=== PATIENT | female | born 2000 | race Caucasian/White ===

== ENCOUNTER 2024-01-21 15:41 | Emergency (ER) | payer SELFPAY ==
--- OUTSIDE RECORDS SUMMARY | 2024-01-21 15:44 | XMS REPORT | Continuity of Care Document ---
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 Name Role Phone Unavailable Unavailable Unavailable Problems Condition Name Condition Details Condition Category Status Onset Date Resolution Date Last Treatment Date Treating Clinician Comments Source Skin lesion Skin Lesion Problem Active 11-06 00:00: 00 [facility] Pelvic swelling Pelvic Swelling Problem Active 11-06 00:00: 00 [facility] Excessive menstruati on with irregular cycle Excessive Menstruati on with Irregular Cycle Problem Active 11-06 00:00: 00 [facility] Anxiety Anxiety Problem Active 11-04 00:00: 00 [facility] Depressive disorder Depressive Disorder Problem Active 11-04 00:00: 00 [facility] Psoriasis Psoriasis Problem Active 11-04 00:00: 00 [facility] Social History Smoking Status Start Date Stop Date Source Current Every Day Smoker [facility] Medications Ordered Medication Name Filled Medication Name Start Date Stop Date Current Medication? Ordering Clinician Indication Dosage Frequency Signature (SIG) Comments Components Source albuterol 90 mcg-budeson fina 80 mcg/actuati on HFA aerosol inhaler Inhale by inhalation route. albuterol 90 mcg-budeson fina 80 mcg/actuati on HFA aerosol inhaler Inhale by inhalation route. No albuterol 90 mcg-budeso nide 80 mcg/actuat ion HFA aerosol inhaler Inhale by inhalation route. [facility] Vital Signs Vital Name Observation Time Observation Value Comments S ritesh BMI (Body Mass Index) 2023-11-05 00:00:00 30.7 kg/m2 [facility] Height 2023-11-05 00:00:00 72 [in_i] [facility] BP Systolic 2023-11-05 00:00:00 105 mm[Hg] [facility] BP Diastolic 2023-11-05 00:00:00 72 mm[Hg] [facility] Body Weight 2023-11-05 00:00:00 226 [lb_av] [facility] Procedures Procedure Date / Time Performed Performing Clinicia n Source CT, abdomen + pelvis, w/wo contrast 2023-11-08 00:00:00 [facility] US, transvaginal 2023-11-07 00:00:00 [facility] ia Medical Encounters Start Date/Time End Date/Time Encounter Type Admission Type Attending [facility] Care Department Encounter ID Source 2023-11-18 00:00:00 2023-11-18 00:00:00 HUONG Franks: [address], [address], [place] [id number] , Ph. [facility] GC_GCBZW_[facility]* [id number] [facility] 2023-11-13 00:00:00 2023-11-13 00:00:00 JOSE Gil: [address], [place] [phone] , Ph. [facility]_GCBZW_[facility]* [id number] [facility] 2023-11-07 00:00:00 2023-11-07 00:00:00 Sania Donis PA: [address], [place] [phone] , Ph. [facility]_GCBZW_[facility]* [id number] [facility] 2023-11-05 00:00:00 2023-11-05 00:00:00 JOSE Gil: [address], [place] [phone] , Ph. [facility]_GCBZW_[facility] [place]* [id number] [facility] Results Test Description Test Time Test Comments Results Result Co mments Source [facility] WddawjpWekma-1-kkfmwzdnvre.tumor marker [Mass/volume] in Serum or Plasma 2023-11-15 00:00:00* Test Item Value Reference Range Interpretation Comme nts AFP, tumor marker (test code = AFP, tumor marker) 2.3 NG/mL <8.4 [facility] MedicalInhibin A [Mass/volume] in Serum or [id number] 00:00:00* Test Item Value Reference Range Interpretation Comme nts inhibin-A (test code = inhibin-A) 40.6 pg/mL see below [facility] MxykoolQnbnd-4-lvddbgpowxf.tumor marker [Mass/volume] in Serum or Plasma 2023-11-15 00:00:00* Test Item Value Reference Range Interpretation Comme nts AFP, tumor marker (test code = AFP, tumor marker) 2.3 NG/mL <8.4 [facility] MedicalInhibin A [Mass/volume] in Serum or [id number] 00:00:00* Test Item Value Reference Range Interpretation Comme nts inhibin-A (test code = inhibin-A) 40.6 pg/mL see below [facility]cer Ag 19-9 [Units/volume] in Serum or [id number] 00:00:00* Test Item Value Reference Range Interpretation Comme nts Ca 19-9 (test code = Ca 19-9) 6.6 U/mL See_Comment [Automated [employer] ge] The system which generated this result transmitted reference range: <or=35.0. The reference range was not used to interpret this result as normal/abnormal. [facility] MedicalLactate dehydrogenase [Enzymatic activity/volume] in Serum or [id number] 00:00:00* Test Item Value Reference Range Interpretation Comme nts LD (test code = LD) 169 U/L 135-214 [facility] MedicalLactate dehydrogenase [Enzymatic activity/volume] in Serum or [id number] 00:00:00* Test Item Value Reference Range Interpretation Comme nts LD (test code = LD) 169 U/L 135-214 [facility]Lactate dehydrogenase [Enzymatic activity/volume] in Serum or [id number] 00:00:00* Test Item Value Reference Range Interpretation Comme nts LD (test code = LD) 169 U/L 135-214 [facility] MedicalLactate dehydrogenase [Enzymatic activity/volume] in Serum or [id number] 00:00:00* Test Item Value Reference Range Interpretation Comme nts LD (test code = LD) 169 U/L 135-214 [facility] Ag 125 [Units/volume] in Serum or [id number] 00:00:00 * Test Item Value Reference Range Interpretation Comme nts CA-125 (test code = CA-125) 23.2 U/mL 6.4-38.1 [facility] metabolic 2000 panel - Serum or [id number] 00:00:00* Test Item Value Reference Range Interpretation Comme nts sodium (test code = sodium) 141 mmol/L 136-145 potassium (test code = potassium) 4.0 mmol/L 3.5-5.5 chloride (test code = chloride) 103 mmol/L 98-107 CO2 (test code = CO2) 26 mmol/ L 23-31 glucose (test code = glucose) 102 mg/dL 70-99 H BUN (test code = BUN) 9 mg/dL 6-20 creatinine (test code = creatinine) 0.8 mg/dL 0.5-0.9 BUN/creatinine ratio (test code = BUN/creatinine ratio) 11.3 calc 10.0-28.0 eGFR non- (test code = eGFR non-) 108.708 mL/min/1.73A? >60.000 eGFR (test code = eGFR ) 130.450 mL/min/1.73A? >60.000 [facility] MedicalChoriogonadotropin.beta subunit [Units/volume] in Serum or Plasma 2023-11-14 00:00:00* Test Item Value Reference Range Interpretation Comme nts HCG (test code = HCG) < 5 [facility] 125 [Units/volume] in Serum or [id number] 00:00:00 * Test Item Value Reference Range Interpretation Comme nts CA-125 (test code = CA-125) 23.2 U/mL 6.4-38.1 [facility] metabolic 2000 panel - Serum or [id number] 00:00:00* Test Item Value Reference Range Interpretation Comme nts sodium (test code = sodium) 141 mmol/L 136-145 potassium (test code = potassium) 4.0 mmol/L 3.5-5.5 chloride (test code = chloride) 103 mmol/L 98-107 CO2 (test code = CO2) 26 mmol/ L 23-31 glucose (test code = glucose) 102 mg/dL 70-99 H BUN (test code = BUN) 9 mg/dL 6-20 creatinine (test code = creatinine) 0.8 mg/dL 0.5-0.9 BUN/creatinine ratio (test code = BUN/creatinine ratio) 11.3 calc 10.0-28.0 eGFR non- (test code = eGFR non-) 108.708 mL/min/1.73A? >60.000 eGFR (test code = eGFR ) 130.450 mL/min/1.73A? >60.000 [facility] MedicalChoriogonadotropin.beta subunit [Units/volume] in Serum or Plasma 2023-11-14 00:00:00* Test Item Value Reference Range Interpretation Comme nts HCG (test code = HCG) < 5 [facility] MedicalCancer Ag 125 [Units/volume] in Serum or [id number] 00:00:00 * Test Item Value Reference Range Interpretation Comme nts CA-125 (test code = CA-125) 23.2 U/mL 6.4-38.1 [facility] - [facility] or [id number] 00:00:00* Test Item Value Reference Range Interpretation Comme nts sodium (test code = sodium) 141 mmol/L 136-145 potassium (test code = potassium) 4.0 mmol/L 3.5-5.5 chloride (test code = chloride) 103 mmol/L 98-107 CO2 (test code = CO2) 26 mmol/ L 23-31 glucose (test code = glucose) 102 mg/dL 70-99 H BUN (test code = BUN) 9 mg/dL 6-20 creatinine (test code = creatinine) 0.8 mg/dL 0.5-0.9 BUN/creatinine ratio (test code = BUN/creatinine ratio) 11.3 calc 10.0-28.0 eGFR non- (test code = eGFR non-) 108.708 mL/min/1.73A? >60.000 eGFR (test code = eGFR ) 130.450 mL/min/1.73A? >60.000 [facility] MedicalChoriogonadotropin.beta subunit [Units/volume] in Serum or Plasma 2023-11-14 00:00:00* Test Item Value Reference Range Interpretation Comme nts HCG (test code = HCG) < 5 [facility] MedicalThyrotropin [Units/volume] in Serum or [id number] 00:00:00* Test Item Value Reference Range Interpretation Comme nts TSH (test code = TSH) 2.470 uIU/mL 0.500-4.530 [facility] MedicalThyrotropin [Units/volume] in Serum or [id number] 00:00:00* Test Item Value Reference Range Interpretation Comme nts TSH (test code = TSH) 2.470 uIU/mL 0.500-4.530 [facility] MedicalThyrotropin [Units/volume] in Serum or [id number] 00:00:00* Test Item Value Reference Range Interpretation Comme nts TSH (test code = TSH) 2.470 uIU/mL 0.500-4.530 [facility] MedicalThyrotropin [Units/volume] in Serum or [id number] 00:00:00* Test Item Value Reference Range Interpretation Comme nts TSH (test code = TSH) 2.470 uIU/mL 0.500-4.530 [facility] panel - Blood by Automated [id number] 00:00:00* Test Item Value Reference Range Interpretation Comme nts WBC (test code = WBC) 9.4 10 3.7-12.0 RBC (test code = RBC) 4.21 10 3.60-5.50 HGB (test code = HGB) 12.7 g/dL 11.5-15.6 HCT (test code = HCT) 38.6 % 34.5-46.5 MCV (test code = MCV) 91.8 um 80.0-102.0 MCH (test code = MCH) 30.1 pg 25.0-34.1 MCHC (test code = MCHC) 32.8 g/dL 29.0-35.0 RDW (test code = RDW) 14.7 % 10.9-16.9 plt (test code = plt) 277 10 136-392 MPV (test code = MPV) 9.1 um 7.4-11.1 gran % (test code = gran %) 73.5 % 36.0-78.0 lymph % (test code = lymph %) 19.2 % 12.0-48.0 mono % (test code = mono %) 6.0 % 0.0-13.0 eos % (test code = eos %) 1 % 0-8 baso % (test code = baso %) 0 % 0-2 gran # (test code = gran #) 6.9 10 1.2-6.8 H lymph # (test code = lymph #) 1.8 10 1.2-3.2 mono # (test code = mono #) 0.6 10 0.3-0.8 eos # (test code = eos #) 0.1 10 0.0-0.4 baso # (test code = baso #) 0.0 10 0.0-0.2 [facility] MedicalChlamydia trachomatis and Neisseria gonorrhoeae rRNA panel - Specimen by [facility] with probe [id number] 00:00:00* Test Item Value Reference Range Interpretation Comme nts aptima combo 2 swab (CT) (te st code = aptima combo 2 swab (CT)) CT neg negative aptima combo 2 swab (GC) (te st code = aptima combo 2 swab (GC)) GC neg negative [facility] MedicalCBC panel - Blood by Automated [id number] 00:00:00* Test Item Value Reference Range Interpretation Comme nts WBC (test code = WBC) 9.4 10 3.7-12.0 RBC (test code = RBC) 4.21 10 3.60-5.50 HGB (test code = HGB) 12.7 g/dL 11.5-15.6 HCT (test code = HCT) 38.6 % 34.5-46.5 MCV (test code = MCV) 91.8 um 80.0-102.0 MCH (test code = MCH) 30.1 pg 25.0-34.1 MCHC (test code = MCHC) 32.8 g/dL 29.0-35.0 RDW (test code = RDW) 14.7 % 10.9-16.9 plt (test code = plt) 277 10 136-392 MPV (test code = MPV) 9.1 um 7.4-11.1 gran % (test code = gran %) 73.5 % 36.0-78.0 lymph % (test code = lymph %) 19.2 % 12.0-48.0 mono % (test code = mono %) 6.0 % 0.0-13.0 eos % (test code = eos %) 1 % 0-8 baso % (test code = baso %) 0 % 0-2 gran # (test code = gran #) 6.9 10 1.2-6.8 H lymph # (test code = lymph #) 1.8 10 1.2-3.2 mono # (test code = mono #) 0.6 10 0.3-0.8 eos # (test code = eos #) 0.1 10 0.0-0.4 baso # (test code = baso #) 0.0 10 0.0-0.2 [facility] MedicalChlamydia trachomatis and Neisseria gonorrhoeae rRNA panel - Specimen by [facility] with probe [id number] 00:00:00* Test Item Value Reference Range Interpretation Comme nts aptima combo 2 swab (CT) (te st code = aptima combo 2 swab (CT)) CT neg negative aptima combo 2 swab (GC) (te st code = aptima combo 2 swab (GC)) GC neg negative [facility] panel - Blood by Automated [id number] 00:00:00* Test Item Value Reference Range Interpretation Comme nts WBC (test code = WBC) 9.4 10 3.7-12.0 RBC (test code = RBC) 4.21 10 3.60-5.50 HGB (test code = HGB) 12.7 g/dL 11.5-15.6 HCT (test code = HCT) 38.6 % 34.5-46.5 MCV (test code = MCV) 91.8 um 80.0-102.0 MCH (test code = MCH) 30.1 pg 25.0-34.1 MCHC (test code = MCHC) 32.8 g/dL 29.0-35.0 RDW (test code = RDW) 14.7 % 10.9-16.9 plt (test code = plt) 277 10 136-392 MPV (test code = MPV) 9.1 um 7.4-11.1 gran % (test code = gran %) 73.5 % 36.0-78.0 lymph % (test code = lymph %) 19.2 % 12.0-48.0 mono % (test code = mono %) 6.0 % 0.0-13.0 eos % (test code = eos %) 1 % 0-8 baso % (test code = baso %) 0 % 0-2 gran # (test code = gran #) 6.9 10 1.2-6.8 H lymph # (test code = lymph #) 1.8 10 1.2-3.2 mono # (test code = mono #) 0.6 10 0.3-0.8 eos # (test code = eos #) 0.1 10 0.0-0.4 baso # (test code = baso #) 0.0 10 0.0-0.2 [facility]Chlamydia trachomatis and Neisseria gonorrhoeae rRNA panel - Specimen by [facility] with probe [id number] 00:00:00* Test Item Value Reference Range Interpretation Comme nts aptima combo 2 swab (CT) (te st code = aptima combo 2 swab (CT)) CT neg negative aptima combo 2 swab (GC) (te st code = aptima combo 2 swab (GC)) GC neg negative [facility] panel - Blood by Automated [id number] 00:00:00* Test Item Value Reference Range Interpretation Comme nts WBC (test code = WBC) 9.4 10 3.7-12.0 RBC (test code = RBC) 4.21 10 3.60-5.50 HGB (test code = HGB) 12.7 g/dL 11.5-15.6 HCT (test code = HCT) 38.6 % 34.5-46.5 MCV (test code = MCV) 91.8 um 80.0-102.0 MCH (test code = MCH) 30.1 pg 25.0-34.1 MCHC (test code = MCHC) 32.8 g/dL 29.0-35.0 RDW (test code = RDW) 14.7 % 10.9-16.9 plt (test code = plt) 277 10 136-392 MPV (test code = MPV) 9.1 um 7.4-11.1 gran % (test code = gran %) 73.5 % 36.0-78.0 lymph % (test code = lymph %) 19.2 % 12.0-48.0 mono % (test code = mono %) 6.0 % 0.0-13.0 eos % (test code = eos %) 1 % 0-8 baso % (test code = baso %) 0 % 0-2 gran # (test code = gran #) 6.9 10 1.2-6.8 H lymph # (test code = lymph #) 1.8 10 1.2-3.2 mono # (test code = mono #) 0.6 10 0.3-0.8 eos # (test code = eos #) 0.1 10 0.0-0.4 baso # (test code = baso #) 0.0 10 0.0-0.2 [facility] MedicalChlamydia trachomatis and Neisseria gonorrhoeae rRNA panel - Specimen by [facility] with probe [id number] 00:00:00* Test Item Value Reference Range Interpretation Comme nts aptima combo 2 swab (CT) (te st code = aptima combo 2 swab (CT)) CT neg negative aptima combo 2 swab (GC) (te st code = aptima combo 2 swab (GC)) GC neg negative [facility], [id number] 13:27:00* Test Item Value Reference Range Interpretation Comme nts HCG (test code = HCG) negative [facility]regnancy test, [id number] 13:27:00* Test Item Value Reference Range Interpretation Comme nts HCG (test code = HCG) negative [facility]regnancy [facility], [id number] 13:27:00* Test Item Value Reference Range Interpretation Comme nts HCG (test code = HCG) negative [facility]regnancy [facility], [id number] 13:27:00* Test Item Value Reference Range Interpretation Comme nts HCG (test code = HCG) negative [facility]
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
[2024-01-21 22:35] VITALS: BP 123/80; TEMP 97.2; O2SAT 98
== END 2024-01-21 19:02 | disposition left against medical advice (07) ==
LOC: ER 15:41
DX: S09.93XA Unspecified injury of face, initial encounter (principal); V43.52XA Car driver injured in collision with other type car in traffic accident, initial encounter; W22.11XA Striking against or struck by driver side automobile airbag, initial encounter; Y93.89 Activity, other specified; Y92.410 Unspecified street and highway as the place of occurrence of the external cause; Z53.21 Procedure and treatment not carried out due to patient leaving prior to being seen by health care provider; F17.290 Nicotine dependence, other tobacco product, uncomplicated
CPT/HCPCS: 99281

== ENCOUNTER 2025-02-16 02:44 | Inpatient (IN) | payer OTHER, SELFPAY ==
--- OUTSIDE RECORDS SUMMARY | 2025-02-16 02:47 | XMS REPORT | Continuity of Care Document ---
Author Name Unknown Address [address] [place] [address] [facility] Address [address] [place] [address] Care Team Providers Care Tailor Apprentice Name Role Phone Raisa Andre Attending Clinician Raisa Stuart Admitting Clinician Alec gregg Payers Payer Name Policy Type Policy Number Effective Date Expirati on Date Source Problems Condition Name Condition Details Condition Category Status Onset Date Resolution Date Last Treatment Date Treating Clinician Comments Source Scalding pain on urination Scalding Pain on Urination Problem Active 2-27 00:00: 00 [facility] Constipati on Constipati on Problem Active 1- 00:00: 00 [facility] Left lower quadrant pain Left Lower Quadrant Pain Problem Active 1- 00:00: 00 [facility] Endometrio sis of pelvis Endometrio sis of Pelvis Problem Active 2023-07 1- 00:00: 00 [facility] Postoperat seamus nausea and vomiting Postoperat seamus Nausea and Vomiting Problem Active 2023-07 0- 00:00: 00 [facility] Skin lesion Skin Lesion Problem Active 11-06 [...] Psoriasis Psoriasis Problem Active 11-04 00:00: 00 [facility] Allergies, Adverse Reactions, Alerts Allergy Name Allergy Type Status Severity Reaction(s) Onset Date Inactive Date Treating Clinician Comments Source No Known Allergie s DA Active U 2023-07 00:00: 00 [facility] Social History Smoking Status Start Date Stop Date Source Current Every Day Smoker [facility] Medications Ordered Medication Name Filled Medication Name Start Date Stop Date Current Medication? Ordering Clinician Indication Dosage Frequency Signature (SIG) Comments Components Source albuterol sulfate HFA 90 mcg/actuati on aerosol inhaler INHALE 2 PUFFS BY MOUTH EVERY 4 TO 6 HOURS NEEDED albuterol sulfate HFA 90 mcg/actuati on aerosol inhaler INHALE 2 PUFFS BY MOUTH EVERY 4 TO 6 HOURS NEEDED No albuterol sulfate HFA 90 mcg/actuat ion aerosol inhaler INHALE 2 PUFFS BY MOUTH EVERY 4 TO 6 HOURS NEEDED [facility] Luis 24 Fe 1 mg-20 mcg (24)/75 mg (4) tablet TAKE ONE (1) TABLET(S) BY MOUTH ONCE A DAY. Luis 24 Fe 1 mg-20 mcg (24)/75 mg (4) tablet TAKE ONE (1) TABLET(S) BY MOUTH ONCE A DAY. No Luis 24 Fe 1 mg-20 mcg (24)/75 mg (4) tablet TAKE ONE (1) TABLET(S) BY MOUTH ONCE A DAY. [facility] nitrofurant oin monohydrate /macrocryst als 100 mg capsule TAKE ONE (1) CAPSULE BY MOUTH EVERY 12 HOURS FOR 7 DAYS. nitrofurant oin monohydrate /macrocryst als 100 mg capsule TAKE ONE (1) CAPSULE BY MOUTH EVERY 12 HOURS FOR 7 DAYS. No 1capsul e(s) Q12H nitrofuran toin monohydrat e/macrocry stals 100 mg capsule TAKE ONE (1) CAPSULE BY MOUTH EVERY 12 HOURS FOR 7 DAYS. [facility] Vital Signs Vital Name Observation Time Observation Value Comments S ource BP Systolic 2024-09-10 00:00:00 108 mm[Hg] [facility] Height 2024-09-10 00:00:00 72 [in_i] [facility] BMI (Body Mass Index) 2024-09-10 00:00:00 24.8 kg/m2 [facility] BP Diastolic 2024-09-10 00:00:00 67 mm[Hg] [facility] Body Weight 2024-09-10 00:00:00 183 [lb_av] [facility] BMI (Body Mass Index) 2024-08-26 00:00:00 26 kg/m2 [facility] BP Diastolic 2024-08-26 00:00:00 63 mm[Hg] [facility] Height 2024-08-26 00:00:00 72 [in_i] [facility] BP Systolic 2024-08-26 00:00:00 111 mm[Hg] [facility] Body Weight 2024-08-26 00:00:00 191.4 [lb_av] [facility] BMI (Body Mass Index) 2024-07-21 00:00:00 26 kg/m2 [facility] Body Weight 2024-07-21 00:00:00 191.4 [lb_av] [facility] Height 2024-07-21 00:00:00 72 [in_i] [facility] BP Diastolic 2024-07-21 00:00:00 83 mm[Hg] [facility] BP Systolic 2024-07-21 00:00:00 130 mm[Hg] [facility] BP Systolic 2024-05-18 00:00:00 111 mm[Hg] [facility] Body Weight 2024-05-18 00:00:00 210.4 [lb_av] [facility] BMI (Body Mass Index) 2024-05-18 00:00:00 28.5 kg/m2 [facility] BP Diastolic 2024-05-18 00:00:00 63 mm[Hg] [facility] Height 2024-05-18 00:00:00 72 [in_i] [facility] BP Systolic 2024-04-30 00:00:00 114 mm[Hg] [facility] Body Weight 2024-04-30 00:00:00 210.4 [lb_av] [facility] Height 2024-04-30 00:00:00 72 [in_i] [facility] BP Diastolic 2024-04-30 00:00:00 74 mm[Hg] [facility] BMI (Body Mass Index) 2024-04-30 00:00:00 28.5 kg/m2 [facility] BMI (Body Mass Index) 2023-11-05 00:00:00 30.7 kg/m2 [facility] Height 2023-11-05 00:00:00 72 [in_i] [facility] BP Systolic 2023-11-05 00:00:00 105 mm[Hg] [facility] BP Diastolic 2023-11-05 00:00:00 72 mm[Hg] [facility] Body Weight 2023-11-05 00:00:00 226 [lb_av] [facility] Procedures Procedure Date / Time Performed Performing Clinicia n Source US TRANSVAGINAL 2024-10-29 00:00:00 [facility] Laparoscopy 2024-05-11 00:00:[address] [facility] [facility] [address], abdomen + pelvis, w/wo contrast 2023-11-08 00:00:00 [facility] US, transvaginal 2023-11-07 00:00:00 [facility] Encounters Start Date/Time End Date/Time Encounter Type Admission Type Attending Clinicians Care Facility Care Department Encounter ID Source 2024-10-29 00:00:00 2024-10-29 00:00:00 Raisa Andre MD: [address], [place] [address] , Ph. [facility]* [id number] [facility] 2024-09-10 00:00:00 2024-09-10 00:00:00 HUONG Kincaid: [address], [place] [address] , Ph. [facility] GC[facility]GCBZW_[facility]* [id number] [facility] 2024-08-26 00:00:00 2024-08-26 00:00:00 JOSE Gil: [address], [place] [address] , Ph. [facility] [id number] [facility] 2024-07-21 00:00:00 2024-07-21 00:00:00 HUONG Kincaid: [address], [place] [phone] , Ph. [facility]* [id number] [facility] 2024-05-18 00:00:00 2024-05-18 00:00:00 ALDO FranksP: [address], [place] [phone] , Ph. [facility]* [id number] [facility] 2024-05-11 07:03:00 2024-05-11 07:03:00 Outpatient Raisa Frey [facility] JM [id number] 41 [facility] 2024-04-30 00:00:00 2024-04-30 00:00:00 HUONG Franks: [address], [place] [phone] , Ph. [facility]* [id number] [facility] 2023-11-18 00:00:00 2023-11-18 00:00:00 HUONG Franks: [address], [place] [phone] , Ph. [facility]* [id number] [facility] 2023-11-13 00:00:00 2023-11-13 00:00:00 JOSE Gil: [address], [place] [address] , Ph. [facility]* [id number] [facility] 2023-11-07 00:00:00 2023-11-07 00:00:00 JOSE Gil: [address], [place] [address] , Ph. [facility]* [id number] [facility] 2023-11-05 00:00:00 2023-11-05 00:00:00 Sania Donis PA: [address], [place] [address] , Ph. [facility]* [id number] [facility] Results Test Description Test Time Test Comments Results Result Co mments Source [id number] 16:45:00* Test Item Value Reference Range Interpretation Comme nts SURGICAL (test code = SR) R UN DATE: 05/20/24 [facility] PAGE 1 RUN TIME: 1115 Specimen Inquiry RUN USER: INTERFACE P ATIENT: SAM BARRIGA LOC: EVE U #: [id number] AGE/SX: 24/F ROOM: RE05/11/24REG DR: Raisa Andre MD, DOB: [birth year] BED: DIS: STATUS: [facility] TLOC: SPEC #: [id number] RECD: 05/12/24 STATUS: BEULAH REQ #: [id number] CHRISTEN: 05/11/24 [facility] DR: Raisa Andre MD ENTERED: 05/12/24 SP TYPE: SURGICAL OTHR DR: ORDERED: [id number], [id number], [id number], ANATOMIC SPEC, SPECIMEN TRACK PROCEDURES: 41289 (05/13/24) 45715 (05/13/24) 57608 (05/13/24) SPECIMEN TRACK (05/12/24) TISSUES: A. UTERUS - RIGHT LATERAL WALL B. FALLOPIAN TUBE NOS - LEFT FALLOPIAN TUBE C. OVARY, RIGHT - RIGHT OVARY CYST ADDENDUM FINDINGS Addendum #1 Entered: 05/20/241115 These addendum is to correct the diagnosis in specimen B as the wrong clinical appeals specialist wastyped. Specimen B consistent only of peritubal soft tissue with Endometriosis. Forclarification the entire corrected diagnosis is transcribed below, "A. Soft tissue partly covered by mesothelium, right lateral wall, lesion, laparoscopicexcisional biopsy:- Consistent with endometriosis B. Soft tissue, left peritubal area, lesion, excisional biopsy:- Endometriosis C. 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 Negative formalignancy. Suggest clinical correlation." Addendum comment: This clinical appeals specialist correction was discussed with Dr. Raisa Andre on05/19/2024. CONTINUED ON NEXT PAGE R UN DATE: 05/20/24 [facility] PAGE 2 RUN TIME: 1115 Specimen Inquiry RUN USER: INTERFACE S PEC #: 24:[facility]:[id number] PATIENT: SAM BARRIGA #[id number] (Continued) ADDENDUM FINDINGS (Continued) Addendum Signed SIGNATURE ON FILE Elizabeth Díaz 05/20/24 1115 FINAL DIAGNOSIS A. Soft tissue partly covered by mesothelium, right lateral wall, lesion, laparoscopicexcisional biopsy:- Consistent with endometriosis. B. Fallopian tube, left, salpingectomy:- Wall, lumen and fimbriated end identified; no morphologic alteration C. Ovary, right, large cyst, oophorectomy:- Mixed serous-mucinous cistoadenoma- Small corpus luteum identified Comment: Please also refer to related cytology report number 24:[facility]:[id number]. Suggest clinicalcorrelation. Negative for malignancy. GROSS DESCRIPTION A. Right lateral wall. It consists of a fibrous plunkett cauterized tissue fragment 2.5 x 0.6x 0.4 cm. It is sectioned and submitted entirely as A1. B. Left fallopian tube. Received is a 2 yellow-plunkett tissue fragments measuring 0.5 x 0.3 x0.2 and 0.6 x 0.6 x 0.4 cm. It is sectioned they are submitted as B1. C. Right ovary and cyst. Received is a flaps ovarian cyst that weighs 548 g. It ibubfvda27 x 16 cm. The wall has a thickness ranging 0.4 - 2.8 cm. Upon sectioning there aremultiple cortical cysts present. These cysts measure up to 5 cm in greatest dimension. They are filled with a serous sanguinous fluid. The cystic lining is smooth. No papillaryfeatures are identified. Multiple sections as C1-C16. Technical tissue processing and slide preparation performed at [facility] [facility],[id number] , [place] [address] Unless gross only, the diagnosis is based upon microscopic examination.Immunohistochemistr y: This test was developed and its performance characteristicsdetermined by this laboratory. It has not been approved nor does it need approval by the USFDA. Appropriate positive and negative controls are reviewed and judged to be acceptable.This laboratory is certified under the Clinical Laboratory Improvement Amendments (CLIA-88)as qualified to perform high complexity clinical laboratory testing. CONTINUED ON NEXT PAGE R UN DATE: 05/20/24 [facility] PAGE 3 RUN TIME: 1115 Specimen Inquiry RUN USER: INTERFACE S JENIFFER #: 24:[facility]:[id number] PATIENT: SAM BARRIGA #[id number] (Continued) MICROSCOPIC DESCRIPTION Microscopic examination is performed on all specimens and the findings areincorporated into the final diagnosis. Please see diagnosis for findings. CLINICAL INFORMATION Right lateral wall, left tube endometriosis and large right ovarian cyst. ---- Signed SIGNATURE ON FILE Elizabeth Díaz 05/13/24 1645 END OF REPORT CYTOLOGY NON [id number] 16:43:00* Test Item Value Reference Range Interpretation Comme nts CYTOLOGY NON DOUBLE END TRIMMER (test code = CR) RUN DATE: 05/13/24 [facility] PAGE 1 RUN TIME: 1643 Specimen Inquiry RUN USER: INTERFACE PATIENT: SAM BARRIGA LOC: G U #: [id number] AGE/SX: 24/F ROOM: RE05/11/24REG DR: Raisa Andre MD : [birth year] BED: DIS: STATUS: [facility] TLOC: SPEC #: [id number] RECD: 05/11/24 STATUS: BEULAH REQ #: [id number] CHRISTEN: 05/11/[address]: Raisa Andre MD ENTERED: 05/11/24 SP TYPE: CYTO NGYN MIRIAN DR: ORDERED: 50767/2, 99302/2, ANATOMIC SPEC, SPECIMEN TRACK PROCEDURES: 92499 (05/11/24-1509) 95115 (05/11/24) SPECIMEN TRACK (05/11/24) TISSUES: A. PERITONEAL WASHING (THIN PREP, CELL BLOCK) - ABNOMINAL PERITONEAL WASHING B. CYST--OVARIAN, NONNEOPLASTIC (SIMPLE) - OVARIAN CYST FLUID FINAL DIAGNOSIS A. Peritoneal fluid, paracentesis, cytology and cell block:- Benign- Mesothelial cells, moderate; some reactive- Proteinaceous, mildly bloody background B. Right ovarian cyst fluid, cytology and cell block:- Cyst contents (mucous debris, scattered macrophages and rare, poorly preserved epithelialcells) Comment: Please also refer to related surgical report number 24:[facility]:[id number]. Negative foratypia/malignancy. Suggest clinical and image correlation. GROSS DESCRIPTION A. Peritoneal washing. It consists of 20 cc of a colorless cloudy fluid. It is submittedfor cytologic preparation. Thin prep: 1 Cell block: 1 B. Ovarian cyst fluid. No laterality provided. It consists of 25 cc of light brownpartially cloudy fluid. It is submitted for cytologic preparation. Thin prep: 1 Cell block: 1 Technical tissue processing and slide preparation performed at [employer] [facility],[id number] , [place] [address] CONTINUED ON NEXT PAGE RUN DATE: 05/13/24 [facility] PAGE 2 RUN TIME: 1643 Specimen Inquiry RUN USER: INTERFACE SPEC #: [id number] PATIENT: SAM BARRIGA #[id number] (Continued) GROSS DESCRIPTION (Continued) Unless gross only, the diagnosis is based upon microscopic examination.Immunohistoche zeenat: This test was developed and its performance characteristicsdetermined by this laboratory. It has not been approved nor does it need approval by the FDA. Appropriate positive and negative controls are reviewed and judged to be acceptable.This laboratory is certified under the Clinical Laboratory Improvement Amendments (CLIA-88)as qualified to perform high complexity clinical laboratory testing. MICROSCOPIC DESCRIPTION Microscopic examination is performed on all specimens and the findings areincorporated into the final diagnosis. Please see diagnosis for findings. CLINICAL INFORMATION Intra abdominal pelvic swelling, mass, lump, excesive and frequent menstruation withirregular cycle Signed SIGNATURE ON FILE Elizabeth Díaz 05/13/24 1643 END OF REPORT URINALYSIS [id number] 13:21:00* Test Item Value Reference Range Interpretation Comme nts UA GLUCOSE DIPSTICK (test co de = DGLUU) NEGATIVE mg/dL NEGATIVE UA BILIRUBIN DIPSTICK (test code = BILU) NEGATIVE NEGATIVE UA KETONE DIPSTICK (test cod e = KETU) NEGATIVE NEGATIVE UA SPECIFIC GRAVITY (test co de = SGU) >1.030 1.005-1.015 UA BLOOD DIPSTICK (test code = LUCY) NEGATIVE NEGATIVE UA PH DIPSTICK (test code = ARTURO) 6.0 5.0-7.0 UA PROTEIN DIPSTICK (test co de = PROU) 1+ NEGATIVE UA UROBILINIOGEN DIPSTICK (test code = URO) 2.0 NORMAL UA NITRITE DIPSTICK (test co de = GLENDA) NEGATIVE NEGATIVE UA LEUKOCYTE ESTERASE DIPSTI CK (test code = LEUU) 3+ NEGATIVE A Urine Specimen Type: Clean CatchUR HCG [id number] 13:21:00* Test Item Value Reference Range Interpretation Comme nts UR HCG QUAL (test code = HCGQLU) NEGATIVE NEGATIVE Urine Specimen Type: Clean CatchCBC W/O [id number] 13:18:00* Test Item Value Reference Range Interpretation Comme nts WHITE BLOOD CELL (test code = WBC) 6.8 K/mm3 3.5-11.0 N RED BLOOD CELL (test code = RBC) 4.68 M/mm3 4.70-6.10 L HEMOGLOBIN (test code = HGB) 13.6 G/DL 10.4-14.9 N HEMATOCRIT (test code = HCT) 42.5 % 31.5-44.1 N MEAN CELL VOLUME (test code = MCV) 90.8 Fl 84.5-98.6 N MEAN CELL HGB (test code = MCH) 29.1 pg 27.0-34.2 N MEAN CELL HGB CONCETRATION ( test code = MCHC) 32.0 G/DL 31.5-34.0 N RED CELL DISTRIBUTION WIDTH (test code = RDW) 16.4 SD 11.5-14.5 H PLATELET COUNT (test code = PLT) 287 K/mm3 150-450 N MEAN PLATELET VOLUME (test c ode = MPV) 9.90 fL 7.0-10.5 N Inhibin A [Mass/volume] in Serum or [id number] 00:00:00* Test Item Value Reference Range Interpretation Comme nts inhibin-A (test code = inhibin-A) 40.6 pg/mL see below [facility] BsojrwjPqxmn-9-ahyeadswchi.tumor marker [Mass/volume] in Serum or Plasma 2023-11-15 00:00:00* Test Item Value Reference Range Interpretation Comme nts AFP, tumor marker (test code = AFP, tumor marker) 2.3 NG/mL <8.4 [facility] Ag 19-9 [Units/volume] in Serum or [id number] 00:00:00* Test Item Value Reference Range Interpretation Comme nts Ca 19-9 (test code = Ca 19-9) 6.6 U/mL See_Comment [Automated [employer] ge] The system which generated this result transmitted reference range: <or=35.0. The reference range was not used to interpret this result as normal/abnormal. [facility] MedicalLactate dehydrogenase [Enzymatic activity/volume] in Serum or [id number] 00:00:00* Test Item Value Reference Range Interpretation Comme nts LD (test code = LD) 169 U/L 135-214 [facility] Ag 125 [Units/volume] in Serum or [id number] 00:00:00 * Test Item Value Reference Range Interpretation Comme nts CA-125 (test code = CA-125) 23.2 U/mL 6.4-38.1 [facility] 2000 panel - Serum or [id number] 00:00:00* Test Item Value Reference Range Interpretation [...] HCG (test code = HCG) < 5 [facility] MedicalThyrotropin [Units/volume] in Serum or [id number] 00:00:00* Test Item Value Reference Range Interpretation Comme nts TSH (test code = TSH) 2.470 uIU/mL 0.500-4.530 [facility] MedicalCBC panel - Blood by Automated [id number] 00:00:00* Test Item Value Reference Range Interpretation [...] code = baso #) 0.0 10 0.0-0.2 [facility] MedicalChlamydia trachomatis and Neisseria gonorrhoeae rRNA panel - Specimen by [place] with probe [id number] 00:00:00* Test Item Value Reference Range Interpretation Comme nts aptima combo 2 swab (CT) (te st code = aptima combo 2 swab (CT)) CT neg negative aptima combo 2 swab (GC) (te st code = aptima combo 2 swab (GC)) GC neg negative [facility] Medicalpregnancy test, [id number] 13:27:00* Test Item Value Reference Range Interpretation Comme nts HCG (test code = HCG) negative [facility] Notes Date/Time Note Provider Source 2024-05-12 21:52:00 [id number] [facility] [id number] [place] [address] PATIENT NAME: SAM BARRIGA ADMIT DATE: 05/11/24 ACCOUNT NO: [id number] ROOM NO: AGE: 24 REPORT TYPE: OPERATIVE REPORT SEX: F ADMITTING PHYSICIAN: ATTENDING PHYSICIAN: Raisa Andre MD OPERATION DATE: 05/11/2024 PREOPERATIVE DIAGNOSES: Large pelvic mass, right ovarian cyst. POSTOPERATIVE DIAGNOSES: Right lateral wall, left tube endometriosis and large right ovarian cyst with 5.3 liters of fluid. PROCEDURES PERFORMED: Diagnostic laparoscopy, right oophorectomy along with cyst drainage. Pelvic washings, endometriosis excision. Mini-laparotomy for retrieval of specimen. SURGEON: Raisa Andre MD ASSISTANTS: Tia Geronimo and Laura Sanford. ANESTHESIA: General endotracheal. FINDINGS: Right lateral wall and left distal tubal endometriosis, right ovarian cyst, encompassing the entire abdominal pelvic cavity and small left cyst aspirated with laparoscopic cholecystectomy needle, 5.3 liters was obtained. Loop was then placed over the site of the entry and no spillage. Everything left into a bag and removed. COMPLICATIONS: No complications. ESTIMATED BLOOD LOSS: 50. SPECIMENS: Pelvic washings, cyst fluid, right ovarian cyst, endometriosis of the right lateral wall and left tube endometriosis. DRAINS: No drains. FLUIDS: 800. URINE OUTPUT: 150. APPROACH: Laparoscopic. WOUND CLASS: Clean. DISPOSITION: Home. PATIENT NAME: SAM BARRIGA COUNTS: Correct. INDICATIONS: The patient is a 24-year-old presented with nonspecific symptoms, found to have a pelvic mass and confirmed on imaging as well. She was offered a diagnostic laparoscopy, salpingectomy or salpingo-oophorectomy or oophorectomy alone. We did all tumor markers and the risk of probability of cancer ____ and she was counseled on this. The patient chose to proceed here, fully understanding that if there is a borderline or malignant tumor then she would be referred to [facility] On[facility] for further surgery. DESCRIPTION OF PROCEDURE: DIAGNOSTIC LAPAROSCOPY: After the patient was brought into the OR, Ancef was given. She was placed her in a supine fashion on operating table. General anesthesia was given, placed in dorsal lithotomy position in the Raffy stirrups. Positioning was checked, timeout was done. SCDs started. Speculum placed to expose the cervix. Anterior lip was grasped with a single tooth tenaculum and a diagnostic VCare manipulator introduced. This area was draped after Gomez was placed. A 10 mm infraumbilical curvilinear, midline incision and then a 5 suprapubic left and right lower quadrant ports were placed under direct vision. Pelvic washings. The fluids were taken for pelvic washings and sent off for cytology. An incision was made on the skin. Then, the fascial incision was made carefully. After entering the peritoneal cavity, it was quite obvious that I was inside the peritoneal cavity with a large cystic mass that was almost firm. Another 5 mm port was placed in the left upper quadrant, triangulated. Then, this was used for the camera interchangeably. Laparoscopic cholecystectomy needle was brought in through the sideport and attached to wall suction ____ and there was 5.3 liters of fluid. Right behind it, the area of prolapse and piercing was held with [place] and a PDS looped suture was brought in and this area was tied down. Once the ovary was decompressed, I was able to visualize the uterus better. RIGHT OOPHORECTOMY: After carefully examining the origin of the cystic mass, it appeared to be notably ovarian without any involvement of the tube on the right side. Distal portion of the tube was identified and using the LigaSure, this was taken down to at least the mid two-thirds of the right tube. Once this was done, the IP ligament was dissected laterally showing the broad ligament up. Then between the ureter and the IP, there is a peritoneal window that was opened up. Then, the IP ligament was taken down with help of the LigaSure and then the uteroovarian ligament was cauterized and cut and the entire specimen was detached. This was placed in the lower abdomen. ENDOMETRIOSIS EXCISION: There was endometriosis on the left tube distally and 3 cm above and there was endometriosis on the right lateral wall. The endometriosis in the right lateral wall was opened up and the peritoneum was excised from vital structures and handed out on the left side and [place] graspers were used to hold the tube and gently the endometrial implants were excised and shaved off and sent to permanent pathology. PATIENT NAME: SAM BARRIGA Since now, 15 trocar port was available, extended the suprapubic incision, do at least 5 to 6 cm just the fascial incision small . Once the entry into the peritoneal cavity was obtained with the help of a Leesa and I was able to place in the large bag directly through the skin into the abdomen. Once this was done, the entire cyst was then flipped into the bag and bag was closed. All the trocars were removed under direct vision. Umbilical trocar was removed. After it was removed, fascia was closed with the help of tagged 0 Vicryl sutures, tied to each other and all interrupted 4-0 Monocryl for all the incisions. MINI-LAPAROTOMY: A #15 blade was used to make a laparotomy incision at least 7 cm long. This was injected with dilute vasopressin. An #11 blade used to make an incision. Fascia incised along with the port location. Then, rectus muscles superiorly and inferiorly and going through the midline. Peritoneum was picked up between 2 Allis clamps and sharply dissected. Once there was wide enough space and the specimen was placed in the bag, I was able to remove the specimen without any problems and being completely intact without any contamination. This was handed off for permanent pathology. Then, the peritoneum was closed with 3-0 Vicryl. The rectus muscles were brought together with 0 chromic and then subcutaneous sutures with 3-0 Vicryl, subcuticular sutures with 4-0 Monocryl at all incision sites. The manipulator and Gomez were removed. Instrument, needle and sponge counts were correct at the end of the case. Mother and [id number]-uak were both debriefed about her surgery. Dictated By: Raisa Andre MD Date Dictated: 05/12/2024 21:52:56 Date Transcribed: 05/13/2024 01:20:18 STEPHANE/LAYNE/GEORGES/JORGE Receipt ID: [id number] Authenticated by Raisa Andre MD On 07/20/2024 12:18:16 PM at 1218 PATIENT NAME: SAM BARRIGA [facility] 2024-05-11 16:11:00 [facility] ([facility]) Brief Op Note REPORT#:[id number] REPORT STATUS: Signed REPORT INITIALIZATION DATE:05/11/24 TIME:1610 PATIENT: SAM BARRIGA UNIT #: [id number] ROOM/BED: : 98 AGE: 24 SEX: F ATTEND: Raisa Andre MD ADM AUTHOR: Raisa Andre MD REPT SERVICE DT/TIME: 05/11/24 1611 * ALL edits or amendments must be made on the electronic/computer document * Op/Inv Proc Note - Brief Pre-procedure diagnosis: large pelvic mass, right ovarian cyst Post-procedure diagnosis: same as pre procedure dx, Right lateral wall, left tube endometriosis, Large right ovarian cyst Procedures performed: Diag laparoscopy Right oophorectomy along with cyst, pelvic washings, endo excision, minilap Primary Surgeon: paulina Research Aide(s): andreas tompkins Anesthesia: general anesthesia Findings: right lat wall and left distal tubal endometriosis, right ovarian cyst encompassing entire abdominal peritoneal cavitysmall left cyst, aspirated with lap roc needle 5300ml , loop placed over the site of entry, no spillage, removed in a 15 bag Complications: none Estimated blood loss in ml's: 50 Specimens removed/altered: washings, cyst fluid, right ovary with cyst, endo rt lat wall, left tube endo Drain(s): None Fluids: 800 Urine output: 150 Approach: laparoscopic Wound class: clean Disposition: plan to D/C home Counts: Sponge count: correct Instrument count: correct Needle count: correct at 1618 RPT #: [id number] END OF REPORT [facility] 2024-05-11 14:36:00 [facility] ([facility]) Post Anesthesia Evaluation REPORT#:[id number] REPORT STATUS: Signed REPORT INITIALIZATION DATE:05/11/24 TIME:1435 PATIENT: SAM BARRIGA UNIT #: [id number] ROOM/BED: : 98 AGE: 24 SEX: F ATTEND: Raisa Andre MD ADM AUTHOR: Al Hayden MD REPT SERVICE DT/TIME: 05/11/241435 * ALL edits or amendments must be made on the electronic/computer document * Post Anesthesia Evaluation Anes. changes from pre-op eval Level of consciousness: no change, patient awake, able to answer questions, participate in this eval. Vital signs: Last Documented: Result Date Time Pulse Ox 99 05/11 0755 B/P 113/76 05/11 075 O2 Delivery Room air 05/11 755 Temp 36.2 05/11 075 Pulse 70 05/11 0755 Resp 16 05/11 075 Cardiovascular: CV system stable, vital signs stable Respiratory/Airway: respiratory system stable, maintains without support Pain: adequately controlled Hydration: adequate Temp status: normothermic Presence of N/V: no Anesthesia complications: no at 1437 RPT #: [id number] END OF REPORT [facility]
[2025-02-16] MEDS ORDERED: MORPHINE 4 MG/ML SYR ONE ×2 (03:22→03:41)
[2025-02-16] MEDS ORDERED: ONDANSETRON 4 MG/2 ML VIAL ONE ×2 (03:23→14:10)
[2025-02-16 03:29] LABS: Absolute Lymphocytes (CBC) 3.7 K/uL (0.7-4.9); Hematocrit 41.4 % (36.0-45.0); Hemoglobin 14.0 g/dL (12.0-15.0); MCH 30.7 pg (27.0-35.0); MCHC 33.9 g/dL (32.0-36.0); MCV 90.8 fL (80-100); MPV 7.8 fL (7.6-11.3); Nucleated RBC Absolute Count 0.0 (0-0); Nucleated Red Blood Cells % 0.2 % (0-0); RBC Red Blood Cell Count 4.57 M/uL (3.86-4.86); White Blood Count 7.80 thou/uL (4.3-10.9)
[2025-02-16 03:33] LABS: Urine Culture Reflex Order NOT NEEDED; Urine Microscopic Reflex YN ORDER UMIC
[2025-02-16] MEDS ORDERED: NA CHLORIDE 0.9% 1,000 ML ONE (03:42)
[2025-02-16 03:54] LABS: ALT/SGPT 35.0 U/L (13-56); AST/SGOT 24.0 U/L (15-37); Albumin 4.0 g/dL (3.4-5.0); Albumin/Globulin Ratio 1.3 (1.1-1.8); Alkaline Phosphatase 60.0 U/L (45-117); Anion Gap 8.3 mEq/L (5.0-15.0); BUN Blood Urea Nitrogen 9.0 mg/dL (7-18); Globulin 3.2 g/dL (2.3-3.5); Glucose Level 97.0 mg/dL (74-106); Lipase 23.0 U/L (13-75); Potassium 3.3 mEq/L (3.5-5.1)
--- NOTE | 2025-02-16 05:06 | EDPHYS ---
Physician Documentation [facility] Name: Juliane Naik Age: 24 yrs Sex: Female : 2000 Arrival Date: 02/16/2025 Time: 02:44 Bed 13 Private MD: ED Physician Missael Berman HPI: 02/16 03:10 This 24 yrs old Unknown Female presents to ER via Ambulatory with complaints of cp Abdominal Pain, Abdominal Cramping. 03:10 The patient presents with abdominal pain in the epigastric area, in the upper abdomen. cp Onset: The symptoms/episode began/occurred about 0200 today. 03:10 Associated signs and symptoms: Pertinent positives: nausea. cp 03:10 Patient reports pain started January 27 and has been intermittent. Worse after eating. 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 - Infectious Disease History:: Denies. - Social history:: Smoking status: Reported history of juuling and/or vaping. Patient/guardian denies using alcohol, street drugs. ROS: 03:15 Constitutional: Negative for body aches, chills, fever, poor PO intake, cp 03:15 Eyes: Negative for injury, pain, redness, and discharge, cp 03:15 ENT: Negative for drainage from ear(s), ear pain, sore throat, difficulty swallowing, difficulty handling secretions, 03:15 Cardiovascular: Negative for chest pain, palpitations, 03:15 Respiratory: Negative for cough, shortness of breath, wheezing, 03:15 Abdomen/GI: Positive for abdominal pain, nausea, Negative for vomiting, diarrhea, constipation, 03:15 Neuro: Negative for altered mental status, dizziness, headache, weakness, 03:15 All other systems are negative, Exam: 03:20 Constitutional: The patient appears in no acute distress, alert, awake, cp non-diaphoretic, non-toxic, well developed, well nourished, in obvious pain, uncomfortable, 03:20 Head/Face: Normocephalic, atraumatic. cp 03:20 Eyes: Periorbital structures: appear normal, Conjunctiva: normal, no exudate, no injection, Sclera: no appreciated abnormality, Lids and lashes: appear normal, bilaterally, 03:20 ENT: External ear(s): are unremarkable, Nose: is normal, Mouth: Lips: moist, Oral mucosa: moist, Posterior pharynx: Airway: no evidence of obstruction, patent, 03:20 Chest/axilla: Inspection: normal, 03:20 Cardiovascular: Rate: normal, Rhythm: regular, 03:20 Respiratory: the patient does not display signs of respiratory distress, Respirations: normal, no use of accessory muscles, no retractions, labored breathing, is not present, Breath sounds: are clear throughout, no decreased breath sounds, no stridor, no wheezing, 03:20 Abdomen/GI: Inspection: abdomen appears normal, Bowel sounds: active, all quadrants, Palpation: soft, in all quadrants, severe abdominal tenderness, in the epigastric area, right upper quadrant and left upper quadrant, rebound tenderness, is not appreciated, voluntary guarding, is elicited in the epigastric area, right upper quadrant and left upper quadrant, 03:20 Back: CVA tenderness, is absent, Vital Signs: 02:54 BP 121 / 71; Pulse 97; Resp 18; Temp 97; Pulse Ox 100% on R/A; Weight 83.46 kg; Height br2 5 ft. 11 in. ; Pain 10/10; 05:40 BP 101 / 68; Pulse 93; Resp 18; Temp 97.1; Pulse Ox 100% ; Pain 0/10; br2 07:04 BP 100 / 69; Pulse 75; Resp 17; Pulse Ox 97% on R/A; ap3 02:54 Body Mass Index 25.66 (83.46 kg, 180.34 cm) br2 02:54 Pain Scale: Adult br2 05:40 Pain Scale: Adult br2 MDM: 03:10 Medical Screening Exam initiated shahram 03:30 Differential diagnosis: cholecystitis, Cholelithiasis, non-specific abd pain, cp pancreatitis, Peptic Ulcer Disease, Perf. Duodenal Ulcer, Perf. Gastric Ulcer, Pyelonephritis, Ureterolithiasis, urinary tract infection. 05:10 Data reviewed: vital signs, nurses notes, lab test result(s), radiologic studies, CT cp scan, plain films, and as a result, I will admit patient. 05:10 I considered the following discharge prescriptions or medication management in the emergency department Medications were administered in the Emergency Department. See MAR. 05:10 Counseling: I had a detailed discussion with the patient and/or guardian regarding the cp historical points, exam findings, and any diagnostic results supporting the discharge/admit diagnosis, lab results, radiology results, the need for further work-up and treatment in the hospital. Response to treatment: the patient's symptoms have markedly improved after treatment, and as a result, I will admit patient. 06:05 Management of patient was discussed with the following: Carbon Electrodes Supervisor: DR Amrit bejarano concerning results of labs and CT study, will consult for general surgery after discussion. 02/16 03:05 Order name: CBC with Diff; Complete Time: 03:36 cp 02/16 03:05 Order name: CMP; Complete Time: 03:55 cp 02/16 03:55 Interpretation: Normal except: K 3.3. cp 02/16 03:05 Order name: Lipase; Complete Time: 03:55 cp / 03:05 Order name: Test, Urine; Complete Time: 03:36 cp 02/16 03:05 Order name: UA Rfx Zackery Cult if indicated; Complete Time: 03:36 cp 02/16 09:48 Order name: CBC with Automated Diff EDMS 02/16 09:48 Order name: CBC with Automated Diff EDMS 02/16 09:48 Order name: Comprehensive Metabolic Panel EDMS 02/16 09:48 Order name: Comprehensive Metabolic Panel EDMS 02/16 09:48 Order name: Protime (+INR) EDMS 02/16 09:48 Order name: Protime (+INR) EDMS 02/16 09:48 Order name: PTT, Activated Partial Thromb EDMS 02/16 09:48 Order name: PTT, Activated Partial Thromb EDMS 02/16 03:37 Order name: CT Abd/Pelvis - IV Contrast Only cp 02/16 03:56 Order name: XRAY Chest (1 view); Complete Time: 08:11 cp 02/16 05:35 Order name: US Abdomen Limited: gallbladder cp 02/16 09:48 Order name: CONS Physician Consult EDMS 02/16 03:05 Order name: IV Saline Lock; Complete Time: 03:35 cp / 03:05 Order name: Labs collected and sent; Complete Time: 03:35 cp 02/16 05:35 Order name: NPO; Complete Time: 05:42 cp Administered Medications: 03:35 Drug: morphine IVP or IV 4 mg IVP once over 4 mins Route: IVP; Infused Over: 4 mins; br2 Site: left antecubital; 04:00 Follow up: Response: Pain is decreased br2 03:35 Drug: Ondansetron IVP 4 mg IVP once; over 2 minutes Route: IVP; Site: left antecubital; br2 04:00 Follow up: Response: No adverse reaction br2 03:59 Drug: NS 0.9% IV 1000 ml IV at 1000 ml once; to be given as a bolus over 60 minutes br2 Route: IV; Rate: 1000 ml; Site: left antecubital; 05:15 Follow up: Response: No adverse reaction; IV Status: Completed infusion; IV Intake: br2 1000ml 03:59 Drug: morphine IVP or IV 4 mg IVP once over 4 mins Route: IVP; Infused Over: 4 mins; br2 Site: left antecubital; 04:00 Follow up: Response: Pain is decreased br2 05:00 CANCELLED (Physician Discretion): potassiumeffervescent tablet 25 meq PO once; dissolve cp in 4 ounces of water or juice 05:39 Drug: Potassium PO Effervescent Tablet 25 mEq PO once; dissolve in 4 ounces of water or br2 juice Route: PO; 07:04 Follow up: Response: No adverse reaction ap3 05:39 Drug: Piperacillin-Tazobactam IVPB 3.375 grams IVPB once over 60 mins; (mix in NS 100 br2 mL) Route: IVPB; Infused Over: 60 mins; Site: left antecubital; 07:04 Follow up: IV Status: Completed infusion ap3 Disposition Summary: 02/16/25 05:05 Hospitalization Ordered Notes: Hospitalization Status: Inpatient Admission cp Provider: David Torres [facility] cp Condition: Stable cp Problem: new cp Symptoms: have improved cp Bed/Room Type: Standard Room Assignment: 223(02/16/25 10:04) bd Diagnosis - Other cholelithiasis without obstruction cp Forms: - Medication Reconciliation Form cp - SBAR form cp - Leadership Thank You Letter cp Addendum: 02/18/2025 15:53 Co-signature as Attending Physician, Missael Berman MD I agree with the assessment and c khoury plan of care. Signatures: Dispatcher [employer] EDMS Shruthi Acosta Corey, MD MD cha Page, Corey, PA PA cp Vdihi Gunn MD MD sp3 Holly Calhoun RN RN br2 Daisha Blankenship RN ap3 Corrections: (The following items were deleted from the chart) 02/16 03:37 03:37 Abdomen Pelvis W Con+CT.RAD.BRZ ordered. EDMS EDMS 05:00 05:00 Potassium PO Effervescent Tablet 25 mEq PO once; dissolve in 4 ounces of water or cp juice ordered. cp 05:35 05:35 Abdomen Limited+US.RAD.BRZ ordered. EDMS EDMS 10:04 05:05 cp bd
--- NOTE | 2025-02-16 05:06 | ER ---
Nurse's Notes [facility] Name: Juliane Naik Age: 24 yrs Sex: Female : 2000 Arrival Date: 02/16/2025 Time: 02:44 Bed 13 Private MD: Diagnosis: Other cholelithiasis without obstruction Presentation: 02/16 02:54 Chief complaint: Patient states: ABDOMINAL PAIN SINCE JANUARY 27...WORSE LATELY. NAUSEA NO br2 VOMITING OR DIARRHEA. Coronavirus screen: Client denies travel out of the [place] in the last 14 days. Ebola Screen: Patient denies exposure to infectious person. Initial Sepsis Screen: Does the patient meet any 2 criteria? HR > 90 bpm. Does the patient have a suspected source of infection? No. Patient's initial sepsis screen is negative. Risk Assessment: Do you want to hurt yourself or someone else? Patient reports no desire to harm self or others. Onset of symptoms is unknown. 02:54 Method Of Arrival: Ambulatory br2 02:54 Acuity: ALEXSANDER 3 br2 Triage Assessment: 02:55 General: Appears uncomfortable, Behavior is cooperative, restless. Pain: Complains of br2 pain in abdomen Pain currently is 10 out of 10 on a pain scale. GI: Abdomen is flat. 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 - Infectious Disease History:: Denies. - Social history:: Smoking status: Reported history of juuling and/or vaping. Patient/guardian denies using alcohol, street drugs. Screenin:54 [facility] ED Fall Risk Assessment (Adult) History of falling in the last 3 months, br2 including since admission No falls in past 3 months (0 pts) Confusion or Disorientation No (0 pts) Intoxicated or Sedated No (0 pts) Impaired Gait No (0 pts) Mobility Assist Device Used No (0 pt) Altered Elimination No (0 pt) Score/Fall Risk Level 0 - 2 = Low Risk Oriented to surroundings. Abuse screen: Denies threats or abuse. Denies injuries from another. Nutritional screening: No deficits noted. Tuberculosis screening: No symptoms or risk factors identified. Assessment: 03:41 Reassessment: SEE TRIAGE ASSESSMENT. br2 04:15 Reassessment: Patient and/or family updated on plan of care and expected duration. Pain br2 level reassessed. Patient is alert, oriented x 3, equal unlabored respirations, skin warm/dry/pink. Patient states feeling better. Patient states symptoms have improved. 05:40 Reassessment: Patient and/or family updated on plan of care and expected duration. Pain br2 level reassessed. Patient is alert, oriented x 3, equal unlabored respirations, skin warm/dry/pink. Patient states feeling better. Patient states symptoms have improved. 07:03 Reassessment: Patient and/or family updated on plan of care and expected duration. Pain ap3 level reassessed. Patient is alert, oriented x 3, equal unlabored respirations, skin warm/dry/pink. General: Appears in no apparent distress. comfortable. Pain: Complains of pain in abdomen. Neuro: Level of Consciousness is awake, alert, obeys commands, Oriented to person, place, time, situation, Appropriate for age. Cardiovascular: Patient's skin is warm and dry. Respiratory: Airway is patent Respiratory effort is even, unlabored, Respiratory pattern is regular, symmetrical. GI: Bowel sounds present X 4 quads. Abd is soft Reports lower abdominal pain, upper abdominal pain. 08:35 Reassessment: Patient and/or family updated on plan of care and expected duration. Pain ap3 level reassessed. Patient is alert, oriented x 3, equal unlabored respirations, skin warm/dry/pink. Vital Signs: 02:54 BP 121 / 71; Pulse 97; Resp 18; Temp 97; Pulse Ox 100% on R/A; Weight 83.46 kg; Height br2 5 ft. 11 in. ; Pain 10/10; 05:40 BP 101 / 68; Pulse 93; Resp 18; Temp 97.1; Pulse Ox 100% ; Pain 0/10; br2 07:04 BP 100 / 69; Pulse 75; Resp 17; Pulse Ox 97% on R/A; ap3 02:54 Body Mass Index 25.66 (83.46 kg, 180.34 cm) br2 02:54 Pain Scale: Adult br2 05:40 Pain Scale: Adult br2 ED Course: 02:47 Patient arrived in ED. [id number] 02:48 Page, Missael, PA is PHCP. cp 02:48 Missael Berman MD is Attending Physician. cp 02:54 Allergy band placed. Placed in gown. Bed in low position. Call light in reach. Side br2 rails up X 1. Provided Education on: PLAN OF CARE. 02:55 Triage completed. br2 03:15 Inserted saline lock: 20 gauge in left antecubital area, using aseptic technique. Blood br2 collected. Flushed with 10 mL NS. 03:35 CMP Sent. br2 03:35 Lipase Sent. br2 04:06 CT Abd/Pelvis - IV Contrast Only In Process Unspecified. EDMS 04:15 Holly Calhoun, RN is Primary Nurse. br2 04:24 XRAY Chest (1 view) In Process Unspecified. EDMS 05:04 David Torres, NITESH is Hospitalizing Provider. cp 07:04 US Abdomen Limited: gallbladder In Process Unspecified. EDMS 07:04 No provider procedures requiring assistance completed. ap3 07:04 Patient admitted, IV remains in place. ap3 07:04 Arm band placed on right wrist. ap3 Administered Medications: 03:35 Drug: morphine IVP or IV 4 mg IVP once over 4 mins Route: IVP; Infused Over: 4 mins; br2 Site: left antecubital; 04:00 Follow up: Response: Pain is decreased br2 03:35 Drug: Ondansetron IVP 4 mg IVP once; over 2 minutes Route: IVP; Site: left antecubital; br2 04:00 Follow up: Response: No adverse reaction br2 03:59 Drug: NS 0.9% IV 1000 ml IV at 1000 ml once; to be given as a bolus over 60 minutes br2 Route: IV; Rate: 1000 ml; Site: left antecubital; 05:15 Follow up: Response: No adverse reaction; IV Status: Completed infusion; IV Intake: br2 1000ml 03:59 Drug: morphine IVP or IV 4 mg IVP once over 4 mins Route: IVP; Infused Over: 4 mins; br2 Site: left antecubital; 04:00 Follow up: Response: Pain is decreased br2 05:00 CANCELLED (Physician Discretion): potassiumeffervescent tablet 25 meq PO once; dissolve cp in 4 ounces of water or juice 05:39 Drug: Potassium PO Effervescent Tablet 25 mEq PO once; dissolve in 4 ounces of water or br2 juice Route: PO; 07:04 Follow up: Response: No adverse reaction ap3 05:39 Drug: Piperacillin-Tazobactam IVPB 3.375 grams IVPB once over 60 mins; (mix in NS 100 br2 mL) Route: IVPB; Infused Over: 60 mins; Site: left antecubital; 07:04 Follow up: IV Status: Completed infusion ap3 Medication: 07:04 VIS not applicable for this client. ap3 Intake: 05:15 IV: 1000ml; Total: 1000ml. br2 Outcome: 05:05 Decision to Hospitalize by Provider. cp 10:43 Admitted to Med/surg accompanied by nurse, room 223, with chart, ap3 10:43 Condition: good 10:43 Discharge instructions given to patient, Instructed on the need for admit, 10:43 Patient left the ED. ap3 Signatures: Dispatcher [employer] EDMS Missael Liao PA PA cp Prokisch, Amanda RN RN ap3 Maisha Grimes6 Holly Calhoun, RN RN br2
[2025-02-16] MEDS ORDERED: POTASSIUM 25 MEQ EFFERV TAB ONE (05:30)
[2025-02-16] MEDS ORDERED: NA CHLORIDE 0.9% 100 ML ONE (05:30)
[2025-02-16] MEDS ORDERED: PIPERACIL/TAZO 3.375 GM VIAL IV ONE (05:31)
--- NOTE | 2025-02-16 05:41 | RAD REPORT ---
INDICATION: upper abdomen pain COMPARISON: No existing relevant imaging studies are available TECHNIQUE: Enhanced CT of the abdomen and pelvis performed per protocol. Oral contrast was not administered. Mul tiplanar reconstructions were provided. Dose reduction techniques were utilized for this exam including automated exposure control, adjustmen ts to mA and/or kV according to patient's size, and the use of iterative reconstruction techniques. FINDINGS: LOWER CHEST: Lung bases are clear. LIVER: Unremarkable. SPLEEN: Unremarkable. PANCREAS: Unremarkable. ADRENALS: Unremarkable. KIDNEYS: Unremarkable. GALLBLADDER: Cholelithiasis with mild gallbladder distention and subtle pericholecystic edema. VESSELS: Aortoiliac system normal in course and caliber. BOWEL: Multiple fluid-filled loops of small bowel within the left upper quadrant. No bowel obstructio n. APPENDIX: Normal. FLUID: No free fluid or abnormal fluid collection. ADENOPATHY: No pathologic adenopathy. BLADDER: Unremarkable. PELVIS: 4.2 cm left ovarian cyst. Uterus is unremarkable. BONES: No acute bony abnormality. SOFT TISSUES: Unremarkable. IMPRESSION: 1. Cholelithiasis with mild gallbladder distention and subtle pericholecystic edema. If clinical co ncern for acute cholecystitis, gallbladder ultrasound and/or HIDA scan would be considered. 2. Small bowel enteritis. 3. 4.2 cm left ovarian cyst. Electronically signed by: Yong Bernal DO 02/16/2025 04:35 AM CDT NR Due to temporary technical issues with the PACS/Kalibrr reporting system, reports are being tiny d by the in-house radiologist without review as a courtesy to ensure prompt reporting the interpreting radiologist is fully responsible for the content of the report. Transcribed Date/Time: 02/16/2025 5:40 AM
--- NOTE | 2025-02-16 06:13 | RAD REPORT ---
INDICATION: upper abdomen pain COMPARISON: No existing relevant imaging studies are available FINDINGS: Single frontal view of the chest was obtained. SUPPORT DEVICES: None HEART/MEDIASTINUM: Cardiomediastinal contours are normal. LUNGS/PLEURA: Lungs are clear. No pleural effusion or pneumothorax. OTHER: No other significant findings. IMPRESSION: No acute findings. Electronically signed by: Yong Bernal DO 02/16/2025 04:35 AM CDT RP NR Due to temporary technical issues with the PACS/EZ4U reporting system, reports are being tiny d by the in-house radiologist without review as a courtesy to ensure prompt reporting the interpreting radiologist is fully responsible for the content of the report. Transcribed Date/Time: 02/16/2025 6:12 AM
--- NOTE | 2025-02-16 08:53 | RAD REPORT ---
PROCEDURES: US ABDOMEN LIMITED CLINICAL HISTORY: Abd petra TECHNIQUE: Limited ultrasound of the gallbladder. COMPARISON: Same day CT FINDINGS: LIVER: Limited assessment. GALLBLADDER: Gallstones present. The gallbladder wall is borderline thickened. Cholelithiasis is pres ent. Positive sonographic Ram's sign. Phrygian cap noted. BILE DUCTS: Intrahepatic and extrahepatic bile ducts appear normal. Measured near the hepatis, the co mmon bile duct is 5 mm. ASCITES: No ascites. ADDITIONAL FINDINGS: None. IMPRESSION: Distended gallbladder with cholelithiasis and positive sonographic Ram sign could represent acute cholecystitis in the appropriate clinical setting. Note that no pericholecystic fluid or gallbladder wall thickening is present. A HIDA scan could confirm cystic duct patency if clinically i ndicated. Electronically signed by: Dong Luz MD 02/16/2025 08:45 AM CDT Transcribed Date/Time: 02/16/2025 8:53 AM
--- NOTE | 2025-02-16 10:02 | P.HP ---
Certification for Inpatient Patient admitted to: Inpatient With expected LOS: >2 Midnights Patient will require the following post-hospital care: None Practitioner: I am a practitioner with admitting privileges, knowledge of patient current condition, hospital course, and medical plan of care. Services: Services provided to patient in accordance with Admission requirements found in Title 42 Section 412.3 of the Code of Federal Regulations Patient History Date of Service: 02/16/25 Reason for admission: Acute cholecystitis History of Present Illness: Patient is a very pleasant 24-year-old female who presents to the hospital with abdominal pain. She actually had surgery last March for what sounds like an ovarian torsion. She required a laparoscopic oophorectomy. The left ovary was removed. This was done by Dr. Andre. Patient states she was doing well up until January 27 when she started having abdominal pain. She states she had eaten at wings stop before the pain started. The pain has been waxing and waning since that time. She finally decided to come into the emergency room where she was found to have an acute cholecystitis. Patient will be n.p.o. after midnight for laparoscopic cholecystectomy. Allergies No Known Allergies Allergy (Verified 03/03/12 15:05) - Past Medical/Surgical History -: Ovarian cyst -: Laparoscopic oophorectomy - Family History Father Family History: Reviewed- Non-Contributory - Social History Smoking Status: Never smoker Alcohol use: No CD- Drugs: No Review of Systems 10-point ROS is otherwise unremarkable Physical Examination - Vital Signs Temperature: 98 F Blood Pressure: 120/80 Pulse: 80 Respirations: 18 Pulse Ox (%): 95 - Physical Exam General: Alert, In no apparent distress, Oriented x3 HEENT: Atraumatic, PERRLA, Mucous membr. moist/pink, EOMI, Sclerae nonicteric Neck: Supple, 2+ carotid pulse no bruit, No LAD, Without JVD or thyroid abnormality Respiratory: Clear to auscultation bilaterally, Normal air movement Cardiovascular: Regular rate/rhythm, Normal S1 S2 Gastrointestinal: Normal bowel sounds, Soft and benign, Non-distended, Tenderness, Rebound, Guarding Musculoskeletal: No clubbing, No swelling, No tenderness Integumentary: No rashes Neurological: Normal gait, Normal speech, Normal strength at 5/5 x4 extr, Normal tone, Sensation intact, Cranial nerves 3-12 intact, Normal affect Lymphatics: No axilla or inguinal lymphadenopathy - Studies Laboratory Data (last 24 hrs) 02/16/25 02/16/25 03:19 03:19 WBC 7.80 Hgb 14.0 Hct 41.4 Plt Count 290 Sodium 140 Potassium 3.3 L BUN 9 Creatinine 0.86 Glucose 97 Total Bilirubin 0.8 AST 24 ALT 35 Alkaline Phosphatase 60 Lipase 23 Assessment & Plan - Problems (Diagnosis) (1) Acute cholecystitis Current Visit: Yes Status: Acute - Plan Plan: 1. N.p.o. after midnight 2. IV antibiotics 3. Pain control 4. General surgery consultation for laparoscopic cholecystectomy 5. Monitor labs closely 6. Low risk for cardiopulmonary complications as patient is clinically healthy with no medical issues 7. GI DVT prophylaxis Discharge Plan: Home Plan to discharge in: Greater than 2 days - Advance Directives Does patient have a Living Will: No Does patient have a Durable POA for Healthcare: No - Code Status/Comfort Care Code Status Assessed: Yes Code Status: Full Code Critical Care: No Time Spent Managing PTS Care (In Minutes): 45
[2025-02-16 11:01] VITALS: BMI 25.7
[2025-02-16] MEDS: MORPHINE 2 MG/ML SYR IV PRN (11:01)
[2025-02-16] MEDS: ONDANSETRON 4 MG/2 ML VIAL IV PRN (11:02)
[2025-02-16] MEDS: NA CHLORIDE 0.9% 1,000 ML IV SCH (11:04)
[2025-02-16] MEDS: PIPER TAZO 3.375 GM in NA CHLORIDE 0.9% 100 ML IV SCH (13:53)
[2025-02-16] MEDS ORDERED: MIDAZOLAM HCL 2 MG/2 ML INJ ONE (14:10)
[2025-02-16] MEDS ORDERED: FENTANYL CITR 100 MCG/2 ML ONE (14:10)
[2025-02-16] MEDS ORDERED: LIDOCAINE 2% MPF 5 ML VIAL ONE (14:10)
[2025-02-16] MEDS ORDERED: ROCURONIUM 50 MG/5 ML VIAL IV ONE (14:10)
[2025-02-16] MEDS ORDERED: KETOROLAC 30 MG/ML INJ ONE (14:10)
[2025-02-16] MEDS: LIDOCAINE HCL/EPINEPHRINE 20 ML MDV ONE (14:45)
--- NOTE | 2025-02-16 15:02 | CON ---
Date of Consultation: 02/16/2025 Brief History Of Present Illness: The patient is a 24-year-old female who presents to the hospital w ith abdominal pain. She has been having this going for approximately 1 month and she states that she had an ovarian cyst removed back in April done by Dr. Andre. She improved from that. It is un like any of that abdominal pain she had prior. She came in with right upper quadrant abdominal pain, particularly after greasy foods such as pizza and hot wings which she eats frequently. She states t hat this causes significant pain and as such, she has had some nausea, but no vomiting. No sick cont acts. No recent travel. No new food exposures, but she does note food associations with fatty greas y fried foods, which caused the pain in the right upper quadrant epigastric region with some radiatio n to the back; lasts for several hours; described as sharp, stabbing; relieved only by rest and on th is occasion pain medication significantly improved it. Past Medical History: Ovarian cyst. Past Surgical History: Laparoscopic oophorectomy. Social History: She denies smoking, alcohol, or recreational drug use. Review of Systems: Ten-point review of systems other than HPI, denies. Physical Examination: General: At the time of my examination, she is awake, alert, and oriented. Psychiatric: Appropriate and conversive. HEENT: She is normocephalic. Sclerae anicteric. Mucous membranes are moist. Oropharynx clear. Neck: Supple without JVD. Chest: Diminished excursion. Cardiovascular: Regular rate and rhythm. Pulmonary: Clear to auscultation bilaterally. Abdomen: Soft with mild right upper quadrant tenderness to palpation. Positive guarding. Positive Ram sign. Extremities: No clubbing, cyanosis, or edema. Skin: Warm and dry. Laboratory Data: Revealed a white blood cell count of 7.8, hemoglobin is 14.0, hematocrit of 41.4, p latelet count was 290, neutrophils of 40%. Her sodium 140, potassium 3.3, chloride 105, carbon dioxi de 30, BUN 9, creatinine 0.8, glucose is 97, total bilirubin 0.8, AST 24, ALT 35, alkaline phosphatas e is 60, lipase 23. UA is essentially negative. test was negative. She had imaging perfo rmed, which included a CT of the abdomen and pelvis as well as an ultrasound. The CT showed cholelit hiasis with mild gallbladder distention and subtle pericholecystic edema. In addition, she had small bowel enteritis. On her ultrasound, it showed distended gallbladder with cholelithiasis with positi ve sonographic Ram sign could represent acute cholecystitis in the appropriate clinical setting. No pericholecystic fluid or gallbladder wall thickening was noted on this study. Assessment And Plan: This is a 24-year-old woman who comes in with signs and symptoms of calculous c holecystitis. 1. IV fluid hydration. 2. Antibiotic coverage. 3. I have explained the risks, benefits, and alternatives of laparoscopic possible open cholecystecto my including but not limited to bleeding, infection, damage to surrounding tissues, need for further operative procedures, injury to bile ducts or intestines, blood clots, heart attack, strokes, other u nforeseen complications in the perioperative period. The patient displayed understanding of the abov e-stated plan and agreed to proceed as indicated. KAROLINE/BRANDON Voice ID: [id number] Report ID: [id number]
[2025-02-16] MEDS ORDERED: GLYCOPYRROLATE 0.2 MG/ML SYR ONE (15:14)
[2025-02-16] MEDS ORDERED: NEOSTIGMINE 1 MG/ML -10 ML VIAL ONE (15:14)
--- NOTE | 2025-02-16 15:17 | P.OP ---
Preoperative diagnosis: Cholecystitis with Cholelithiasis Postoperative diagnosis: Cholecystitis with Cholelithiasis Primary procedure: Laparoscopic Cholecystecomy with ICG Cholangiography Anesthesia: GETA + Local Estimated blood loss: <5cc Specimen: Gallbladder Findings: Distended Gallbladder, inflammatory changes Complications: None Transferred to: Recovery Room Condition: Good
[2025-02-16] MEDS: SUGAMMADEX SODIUM 200 MG/2 ML VIAL IV ONE (15:51)
[2025-02-16] MEDS: HYDROMORPHONE HCL 0.5 MG/0.5 ML INJ ONE (15:54)
[2025-02-16] MEDS: HYDROMORPHONE HCL 1 MG/ML INJ ONE (15:57)
[2025-02-16] MEDS: FENTANYL CITR 100 MCG/2 ML ONE (16:10)
[2025-02-16] MEDS ORDERED: PIPER TAZO 3.375 GM in NA CHLORIDE 0.9% 100 ML IV SCH (17:00)
[2025-02-16] MEDS: ACETAMINOPHEN 500 MG TAB PO PRN (19:16)
[2025-02-16] MEDS: HYDROMORPHONE HCL 0.5 MG/0.5 ML INJ IV ONE (19:51)
--- NOTE | 2025-02-17 02:51 | OP ---
Date of Procedure: 02/16/2025 Surgeon: John Marcus MD, Preoperative Diagnosis: Cholecystitis with cholelithiasis. Postoperative Diagnosis: Cholecystitis with cholelithiasis. Procedure Performed: Laparoscopic cholecystectomy with indocyanine green cholangiography. Anesthesia: General endotracheal plus local with 1% lidocaine with epinephrine. Estimated Blood Loss: Less than 5 cc. Specimen: Gallbladder. Findings: Distended gallbladder, inflammatory change of the gallbladder, and short cystic duct. Complications: None. Disposition: Patient transferred to recovery room in good condition. Procedure In Detail: After informed consent was obtained, patient was brought to the operating room, prepped and draped in the usual sterile fashion. After adequate anesthesia was achieved, I anesthet ized an area in the supraumbilical position down to subcutaneous tissues. A 5 mm 0 degree optical tr ocar was introduced into the abdomen without incident or complication. Insufflation obtained to 15 m mHg at this time. There was no injury to vital structures upon entry into the abdomen. Three additi onal trocars were placed, 1 in the epigastrium, 1 in the right upper quadrant, 1 in the right lower a bdomen. All of these were similarly anesthetized, sharply incised. A 5 mm trocar was placed under d irect vision without incident or complication. At this point, the mm trocar was upsized t o 12 mm under direct vision without incident or complication. At this point, the patient was positio dell head up right-side up position. Ratcheted grasper was used to grasp the patient's gallbladder, p laced towards the patient's right shoulder. Dissection continued down to the Brock pouch of the g allbladder. Short cystic duct was noted but did have adequate length for transection with clips. Af ter I skeletonized 2 structures identified as both the cystic duct and cystic artery, critical view o f safety was obtained at this point. I then performed indocyanine green cholangiography and placed d ouble titanium clips on the proximal side and singly on the distal side of both cystic duct and cysti c artery. After this was performed, indocyanine green cholescintigraphy showed that the proposed tra nsection was far enough from the hepatic/common duct to avoid any stenotic tissues. At this point, I transected these 2 structures and removed the gallbladder without incident or complication from the hepatic fossa. The gallbladder was then placed in EndoCatch bag, removed through the umbilical troca r site, sent off for pathologic examination. The abdomen was copiously irrigated. At this point, th ere was minimal hemostatic measure required in the hepatic fossa in the inferior portion. Minimal fu lguration was required at this point. The area was copiously irrigated at this point and good hemost asis was achieved. At this point, I sucked out the remaining effluent. The patient was positioned b ack in neutral position. The remaining effluent was suctioned out. At this point, no additional hem ostatic was required, checked under desufflation pressure. At this point, 12 mm trocar site was clos ed using a Pito-Shayla suture passer with 0 Vicryl in uninterrupted fashion with good approximati on of tissue. The abdomen was then desufflated under direct vision without incident or complication. All remaining trocars were copiously irrigated and closed with 4-0 Monocryl in a running fashion. Dermabond placed over top. The patient tolerated procedure without incident or complication, transfe rred to PACU in good condition. All counts were correct at end of the case. TK/MODL Voice ID: [id number] Report ID: [id number]
[2025-02-17 03:37] VITALS: O2SAT 97
[2025-02-17 06:26] LABS: Absolute Lymphocytes (CBC) 0.8 K/uL (0.7-4.9); Hematocrit 36.7 % (36.0-45.0); Hemoglobin 12.2 g/dL (12.0-15.0); MCH 30.7 pg (27.0-35.0); MCHC 33.3 g/dL (32.0-36.0); MCV 92.1 fL (80-100); MPV 9.1 fL (7.6-11.3); Nucleated RBC Absolute Count 0.0 (0-0); Nucleated Red Blood Cells % 0.0 % (0-0); RBC Red Blood Cell Count 3.99 M/uL (3.86-4.86); White Blood Count 7.30 thou/uL (4.3-10.9)
[2025-02-17 06:34] LABS: PT Prothrombin Time 12.6 SECONDS (10-13.0); PTT, Activated Partial Thromb 28.4 SECONDS (27.2-37.4); Protime INR 1.12
[2025-02-17 06:59] LABS: ALT/SGPT 278.0 U/L (13-56); AST/SGOT 200.0 U/L (15-37); Albumin 3.3 g/dL (3.4-5.0); Albumin/Globulin Ratio 1.1 (1.1-1.8); Alkaline Phosphatase 65.0 U/L (45-117); Anion Gap 13.0 mEq/L (5.0-15.0); BUN Blood Urea Nitrogen 6.0 mg/dL (7-18); Globulin 2.9 g/dL (2.3-3.5); Glucose Level 111.0 mg/dL (74-106); Potassium 4.0 mEq/L (3.5-5.1)
[2025-02-17] MEDS ORDERED: FENTANYL CITR 100 MCG/2 ML IV PRN (16:40)
[2025-02-17] MEDS: NA CHLORIDE 0.9% 500 ML IV ONE (16:40)
[2025-02-17] MEDS: KETOROLAC 30 MG/ML INJ IV ONE (16:40)
[2025-02-17] MEDS: FENTANYL CITR 100 MCG/2 ML IV ONE ×2 (17:24→18:22)
[2025-02-17] MEDS: NA CHLORIDE 0.9% 1,000 ML IV ONE (17:32)
[2025-02-17] MEDS: NA CHLORIDE 0.9% 1,000 ML IV SCH (17:33)
[2025-02-17] MEDS: SIMETHICONE 80 MG CHEWABLE TAB PO ONE (18:52)
[2025-02-17 19:04] LABS: Absolute Lymphocytes (CBC) 1.9 K/uL (0.7-4.9); Hematocrit 37.2 % (36.0-45.0); Hemoglobin 12.4 g/dL (12.0-15.0); MCH 30.8 pg (27.0-35.0); MCHC 33.4 g/dL (32.0-36.0); MCV 92.2 fL (80-100); MPV 8.3 fL (7.6-11.3); Nucleated RBC Absolute Count 0.0 (0-0); Nucleated Red Blood Cells % 0.0 % (0-0); RBC Red Blood Cell Count 4.03 M/uL (3.86-4.86); White Blood Count 8.90 thou/uL (4.3-10.9)
[2025-02-17 19:30] LABS: ALT/SGPT 331.0 U/L (13-56); AST/SGOT 286.0 U/L (15-37); Albumin 3.3 g/dL (3.4-5.0); Albumin/Globulin Ratio 1.1 (1.1-1.8); Alkaline Phosphatase 78.0 U/L (45-117); Anion Gap 9.5 mEq/L (5.0-15.0); BUN Blood Urea Nitrogen 8.0 mg/dL (7-18); Globulin 3.1 g/dL (2.3-3.5); Glucose Level 100.0 mg/dL (74-106); Lipase 22.0 U/L (13-75); Potassium 3.5 mEq/L (3.5-5.1)
[2025-02-17] MEDS: TEMAZEPAM 15 MG CAP PO PRN (21:25)
[2025-02-17] MEDS: SIMETHICONE 125 MG TAB PO PRN (21:25)
[2025-02-17] MEDS: FENTANYL CITR 100 MCG/2 ML IV PRN (21:47)
[2025-02-18 04:19] LABS: Absolute Lymphocytes (CBC) 2.3 K/uL (0.7-4.9); Hematocrit 33.4 % (36.0-45.0); Hemoglobin 11.4 g/dL (12.0-15.0); MCH 31.4 pg (27.0-35.0); MCHC 34.1 g/dL (32.0-36.0); MCV 92.0 fL (80-100); MPV 8.2 fL (7.6-11.3); Nucleated RBC Absolute Count 0.0 (0-0); Nucleated Red Blood Cells % 0.3 % (0-0); RBC Red Blood Cell Count 3.63 M/uL (3.86-4.86); White Blood Count 5.00 thou/uL (4.3-10.9)
[2025-02-18 04:47] LABS: ALT/SGPT 346.0 U/L (13-56); AST/SGOT 255.0 U/L (15-37); Albumin 2.7 g/dL (3.4-5.0); Albumin/Globulin Ratio 1.0 (1.1-1.8); Alkaline Phosphatase 76.0 U/L (45-117); Anion Gap 5.5 mEq/L (5.0-15.0); BUN Blood Urea Nitrogen 10.0 mg/dL (7-18); Globulin 2.6 g/dL (2.3-3.5); Glucose Level 101.0 mg/dL (74-106); Magnesium 1.9 mg/dL (1.6-2.4); Potassium 3.5 mEq/L (3.5-5.1)
--- NOTE | 2025-02-18 07:49 | RAD REPORT ---
EXAM: XR of the abdomen HISTORY: Abdominal pain Abd pain COMPARISON: None FINDINGS: XR of the abdomen shows a nonspecific, nonobstructive bowel gas pattern. Moderate stool is present in the cecum. No suspicious calcifications are seen. Small metallic clip projects over the central pelvis. The bones are unremarkable. IMPRESSION: No acute finding.
--- NOTE | 2025-02-18 11:02 | RAD REPORT ---
EXAMINATION: Ultrasound of the liver CLINICAL HISTORY: R abd pain COMPARISON: None. FINDINGS: Liver: Visualized portions of the liver demonstrate diffuse parenchymal echogenicity suggesting steat osis. Gallbladder: Surgically absent. Bile ducts: No intrahepatic or extrahepatic biliary dilatation. Common bile duct measures 3 mm. Fluid: No ascites. Spleen: Normal size. Unremarkable right kidney. IMPRESSION: Diffuse fatty liver pattern is noted.
[2025-02-18 12:35] VITALS: BP 90/50; TEMP 97.9
== END 2025-02-18 13:10 | disposition home or self-care (01) | DRG 419 ==
LOC: ER 02:44 → ERHOLD 09:42 → 2ND 10:35
PROVIDERS: ADMIT Hospitalist; ATTEND Hospitalist
PROC: BF12YZZ Fluoroscopy of Gallbladder using Other Contrast (ICD-10-PCS; 2025-02-16)
PROC: 0FT44ZZ Resection of Gallbladder, Percutaneous Endoscopic Approach (ICD-10-PCS; principal; 2025-02-16 15:00)
DX: K80.00 Calculus of gallbladder with acute cholecystitis without obstruction (principal); Z98.890 Other specified postprocedural states
CPT/HCPCS: 36415; 71045; 74018; 74177; 76705; 80053; 81001; 81025; 83690; 83735; 85025; 85610; 85730; 88304; 96361; 96365; 96375; 99285; J1100; J1171; J2003; J2250; J2270; J2405; J2543; J2704; J2710; J3010; J7030; Q9967